=== PATIENT | female | born 1980 | race Asian ===

== ENCOUNTER 2018-11-09 11:06 | Emergency (ER) | payer OTHER ==
[2018-11-09 11:14] VITALS: BP 128/83; PULSE 70; BMI 26.4
--- NOTE | 2018-11-09 11:25 | PDOC ---
History of Present Illness - General Chief Complaint: Injury Stated Complaint: tailbone pain Time Seen by Provider: 11/09/18 11:25 History Source: Patient - History of Present Illness Initial Comments: 11/09/18 11:49 38-year-old female complaining of pain to the tailbone after sitting fast to a hardwood portion of a couch yesterday. Patient reports pain with sitting. Denies past medical history No known ALLERGIES Past History - Past Medical History Allergies/Adverse Reactions: Allergies Allergy/AdvReac Type Severity Reaction Status Date / Time No Known Drug Allergies Allergy Verified 04/07/17 12:03 Home Medications: Ambulatory Orders Ibuprofen [Motrin -] 600 mg PO QID PRN #28 tablet 06/12/15 Cephalexin [Keflex] 500 mg PO BID #12 capsule 04/07/17 Ibuprofen 600 mg PO QID PRN #20 tablet 11/09/18 Asthma: No Cancer: No Cardiac Disorders: No CVA: No COPD: No CHF: No DVT: No Dementia: No Diabetes: No GI Disorders: No Disorders: No HTN: No Hypercholesterolemia: No Liver Disease: No Seizures: No Thyroid Disease: No - Surgical History Abdominal Surgery: Yes (csection) Appendectomy: No Cardiac Surgery: No Cholecystectomy: No Lung Surgery: No Neurologic Surgery: No Orthopedic Surgery: No Other Surgical History: 11/09/18 11:51 tubal ligation - Reproductive History Is Patient Now?: No - Immunization History Immunization Up to Date: No - Psycho Social/Smoking Cessation Hx Smoking Status: No Smoking History: Never smoked Have you smoked in the past 12 months: No Number of Cigarettes Smoked Daily: 0 Information on smoking cessation initiated: No Hx Alcohol Use: No Drug/Substance Use Hx: No Substance Use Type: None Hx Substance Use Treatment: No Review of Systems - Review of Systems Able to Perform ROS?: Yes Is the patient limited Uzbek proficient: No Constitutional: No: Symptoms Reported, See HPI, Chills, Diaphoresis, Fever, Loss of Appetite, Malaise, Night Sweats, Weakness, Weight Stable, Unintentional Wgt. Loss, Unexplained wgt Loss, Other Respiratory: No: Symptoms reported, See HPI, Cough, Orthopnea, Shortness of Breath, SOB with Exertion, SOB at Rest, Stridor, Wheezing, Productive cough, Hemoptysis, Other Musculoskeletal: Yes: Other (tail bone pain) *Physical Exam - Vital Signs Last Vital Signs Temp Pulse Resp BP Pulse Ox 70 18 128/83 100 11/09/18 11:12 11/09/18 11:12 11/09/18 11:12 11/09/18 11:12 - Physical Exam General Appearance: Yes: Appropriately Dressed Musculoskeletal: positive: Other (coccyx area tenderness) Extremity: positive: Normal Capillary Refill, Normal Inspection, Normal Range of Motion Integumentary: positive: Normal Color, Dry, Warm Neurologic: positive: Fully Oriented, Alert, Normal Mood/Affect Medical Decision Making - Medical Decision Making 11/09/18 11:51 A: coccyxdenia P: xray Nsaids 11/09/18 11:56 Discharge - Discharge Information Problems reviewed: Yes Clinical Impression/Diagnosis: Coccygeal pain Condition: Stable - Additional Discharge Information Prescriptions: Ibuprofen 600 mg PO QID PRN #20 tablet PRN Reason: Back Pain - Follow up/Referral Referrals: Eulogio Erickson MD [Staff Physician] - - Patient Discharge Instructions Patient Printed Discharge Instructions: Coccydynia Additional Instructions: take ibuprofen as prescribed for pain. follow-up with an orthopedic doctor as soon as possible Return to the ER if symptoms are worsening. - Post Discharge Activity Work/Back to School Note: Back to Work
[2018-11-09] MEDS ORDERED: KETOROLAC TROMETHAMINE 30 MG/1 ML VIAL IM ONE (11:51)
[2018-11-09] MEDS ORDERED: KETOROLAC TROMETHAMINE 30 MG/1 ML VIAL ONE (11:59)
== END 2018-11-09 12:31 | disposition home or self-care (01) ==
LOC: JERFT 11:06
PROC: 3E0233Z Introduction of Anti-inflammatory into Muscle, Percutaneous Approach (ICD-10-PCS; principal; 2018-11-09)
DX: M53.3 Sacrococcygeal disorders, not elsewhere classified (principal)
CPT/HCPCS: 72100-TC-FY; 96372; 99282-25

== ENCOUNTER 2021-12-21 15:35 | Emergency (ER) | payer OTHER ==
[2021-12-21 16:01] VITALS: TEMP 98.6; BMI 25.0
[2021-12-21] MEDS ORDERED: SODIUM CHLORIDE 1,000 ML IV STA (16:22)
[2021-12-21] MEDS ORDERED: morphine CARPU-JECT 2 MG/1 ML DISP.SYRIN IVPUSH ONE (16:22)
[2021-12-21 16:32] LABS: HCG,QUALITATIVE URINE Negative
[2021-12-21] MEDS ORDERED: morphine SULFATE 4 MG/ML VIAL ONE (16:52)
[2021-12-21 17:08] LABS: EPITHELIAL CELLS FEW /hpf
[2021-12-21 17:28] LABS: INR 1.09 (0.83-1.09); PROTHROMBIN TIME (PATIENT) 12.6 SEC (9.7-13.0)
[2021-12-21 17:29] LABS: HEMATOCRIT 36.6 % (32.4-45.2); HEMOGLOBIN 11.8 G/dL (10.7-15.3); MCH 23.4 pg (25.7-33.7); MCHC 32.2 g/dl (32.0-36.0); MEAN CELL VOLUME 72.8 fl (80-96); MEAN PLT VOLUME 8.5 fl (7.5-11.1); PLATELET COUNT 410.2 10^3/uL (134-434); RBC 5.03 10^6/uL (3.60-5.2); RDW 17.6 % (11.6-15.6); WHITE BLOOD COUNT 9.2 10^3/uL (4.0-10.8)
[2021-12-21 17:36] LABS: ALBUMIN 4.4 g/dl (3.4-5.0); BILIRUBIN,TOTAL 0.4 mg/dl (0.2-1); CALCIUM 10.2 mg/dl (8.5-10); CREATININE 0.6 mg/dl (0.55-1.3); TOT PROT 7.5 g/dl (6.4-8.2)
[2021-12-21 17:47] LABS: PLATELET ESTIMATE SLT INCREASE
[2021-12-21] MEDS ORDERED: CEFTRIAXONE 1,000 MG in DEXTROSE 5%-WATER - 50 ML IVPB ONE (19:00)
[2021-12-21] MEDS ORDERED: cefTRIAXone SODIUM 1 GM VIAL ONE (19:12)
[2021-12-21 20:09] VITALS: BP 141/86; PULSE 71; RESP 16
[2021-12-21] MEDS ORDERED: NITROFURANTOIN MACROCRYSTAL 50 MG CAPSULE (FP) PO SCH (21:45)
[2021-12-21] MEDS ORDERED: NITROFURANTOIN MACROCRYSTAL 50 MG CAPSULE (FP) ONE (22:21)
[2021-12-21] MEDS ORDERED: guaiFENesin/CODEINE 10 ML UNIT-DOSE CUPS PO STA (22:28)
== END 2021-12-21 22:30 | disposition home or self-care (01) ==
LOC: FER 15:35
PROC: 3E033GC Introduction of Other Therapeutic Substance into Peripheral Vein, Percutaneous Approach (ICD-10-PCS; principal; 2021-12-21)
DX: N39.0 Urinary tract infection, site not specified (principal); R10.84 Generalized abdominal pain
CPT/HCPCS: 0241U-QW; 36415; 74177-TC; 80053; 81003; 81015; 83690; 84703; 85027; 85610; 86850; 86900; 86901; 87086; 87186; 99285-25; Q9967

== ENCOUNTER 2021-12-23 09:00 | Emergency (ER) | payer OTHER ==
[2021-12-23 09:23] VITALS: BP 146/89; PULSE 77; RESP 16; BMI 25.0
[2021-12-23] MEDS ORDERED: SODIUM CHLORIDE 0.9% 500 ML INFUS.BAG IV ONE (09:26)
[2021-12-23] MEDS ORDERED: ACETAMINOPHEN 1000 MG/100 ML BAG IVPB ONE (09:26)
[2021-12-23] MEDS ORDERED: ACETAMINOPHEN INJECTION 100 ML IVPB ONE (09:28)
[2021-12-23 10:05] LABS: HEMATOCRIT 37.9 % (32.4-45.2); HEMOGLOBIN 12.3 G/dL (10.7-15.3); MCH 23.7 pg (25.7-33.7); MCHC 32.6 g/dl (32.0-36.0); MEAN CELL VOLUME 72.7 fl (80-96); MEAN PLT VOLUME 8.2 fl (7.5-11.1); PLATELET COUNT 405.4 10^3/uL (134-434); RBC 5.21 10^6/uL (3.60-5.2); RDW 16.9 % (11.6-15.6)
[2021-12-23 10:10] LABS: ALBUMIN 4.3 g/dl (3.4-5.0); BILIRUBIN,TOTAL 0.6 mg/dl (0.2-1); CALCIUM 9.8 mg/dl (8.5-10); CREATININE 0.7 mg/dl (0.55-1.3); TOT PROT 7.7 g/dl (6.4-8.2)
[2021-12-23 10:18] LABS: PLATELET ESTIMATE ADEQUATE
[2021-12-23 10:45] VITALS: TEMP 98
[2021-12-23 13:18] LABS: HCG,QUALITATIVE URINE Negative
[2021-12-23] MEDS ORDERED: diphenhydrAMINE HCL 50 MG CAPSULE PO ONE (14:24)
[2021-12-23] MEDS ORDERED: diphenhydrAMINE HCL 50 MG CAPSULE ONE (14:26)
== END 2021-12-23 14:33 | disposition home or self-care (01) ==
LOC: FER 09:00
PROC: 3E033GC Introduction of Other Therapeutic Substance into Peripheral Vein, Percutaneous Approach (ICD-10-PCS; principal; 2021-12-23)
DX: R10.84 Generalized abdominal pain (principal)
CPT/HCPCS: 36415; 76830-TC; 76856-TC; 80053; 81003; 84703; 85027; 99284-25

== ENCOUNTER 2021-12-29 12:18 | Emergency (ER) | payer OTHER ==
[2021-12-29 12:27] VITALS: BP 131/76; PULSE 84; RESP 18; TEMP 97.5; BMI 24.0
[2021-12-29 15:36] LABS: BASO % 0.3 % (0-2.0); EOS % 1.2 % (0-4.5); HEMATOCRIT 35.7 % (32.4-45.2); HEMOGLOBIN 11.4 GM/dL (10.7-15.3); LYMPH % 27.4 % (8-40); MCHC 31.8 g/dl (32.0-36.0); MEAN CELL VOLUME 72.4 fl (80-96); MEAN PLT VOLUME 8.1 fl (7.5-11.1); NEUT % 60.1 % (42.8-82.8); PLATELET COUNT 398 10^3/uL (134-434); RBC 4.93 M/mm3 (3.60-5.2); RDW 16.2 % (11.6-15.6); WHITE BLOOD COUNT 8.4 K/mm3 (4.0-10.0)
[2021-12-29] MEDS ORDERED: ALBUTEROL SO4 HFA INHALER IH ONE (15:51)
[2021-12-29 15:54] LABS: CHLORIDE 109 mmol/L (98-107); SODIUM 141 mmol/L (136-145)
[2021-12-29 15:55] LABS: CALCIUM 9.5 mg/dL (8.5-10.1)
[2021-12-29 15:56] LABS: ANION GAP 9 MMOL/L (8-16); BLOOD UREA NITROGEN 9.4 mg/dL (7-18); CO2 23 mmol/L (21-32); GLUCOSE,RANDOM 71 mg/dL (74-106)
[2021-12-29 15:59] LABS: CREATININE 0.6 mg/dL (0.55-1.3)
[2021-12-29] MEDS ORDERED: KETOROLAC TROMETHAMINE 30 MG/1 ML VIAL IVPUSH ONE (17:57)
[2021-12-29] MEDS ORDERED: ACETAMINOPHEN 1000 MG/100 ML BAG IVPB ONE (17:57)
[2021-12-29] MEDS ORDERED: ACETAMINOPHEN INJECTION 100 ML IVPB ONE (18:06)
[2021-12-29] MEDS ORDERED: KETOROLAC TROMETHAMINE 30 MG/1 ML VIAL ONE (18:07)
== END 2021-12-29 18:44 | disposition home or self-care (01) ==
LOC: JER 12:18
PROC: 3E0333Z Introduction of Anti-inflammatory into Peripheral Vein, Percutaneous Approach (ICD-10-PCS; principal; 2021-12-29)
PROC: 3E0333Z Introduction of Anti-inflammatory into Peripheral Vein, Percutaneous Approach (ICD-10-PCS; 2021-12-29)
DX: R10.2 Pelvic and perineal pain (principal)
CPT/HCPCS: 36415; 74177-TC; 80048; 84702; 85025; 99285-25; Q9967

== ENCOUNTER 2022-02-10 04:09 | Day surgery (SDC) | payer OTHER ==
[2022-02-03 11:40] VITALS: BMI 25.0
[2022-02-10] MEDS ORDERED: PHENAZOPYRIDINE HCL 100 MG TABLET (FP) PO ONE ×2 (06:30→06:45)
[2022-02-10] MEDS ORDERED: CEFAZOLIN 2 GM in DEXTROSE 5%-WATER - 100 ML IVPB ONE (06:30)
[2022-02-10] MEDS ORDERED: ceFAZolin SODIUM 1 GM VIAL ONE ×3 (06:39→07:58)
[2022-02-10] MEDS ORDERED: GABAPENTIN 300 MG CAPSULE PO ONE ×2 (06:45→07:00)
[2022-02-10] MEDS ORDERED: ROCURONIUM BROMIDE 50 MG/5 ML SYRINGE ONE ×2 (06:53→08:28)
[2022-02-10] MEDS ORDERED: SUCCINYLCHOLINE CHLORIDE 200 MG/10 ML SYRINGE ONE (06:53)
[2022-02-10] MEDS ORDERED: PROPOFOL 20 ML ONE (06:53)
[2022-02-10] MEDS ORDERED: FENTANYL CITRATE/PF 50 MCG/ML VIAL ONE ×4 (06:53→10:55)
[2022-02-10] MEDS ORDERED: MIDAZOLAM HCL 2 MG/2 ML SINGLE DOSE VIAL ONE (06:53)
[2022-02-10] MEDS ORDERED: CLINDAMYCIN IVPB 300 MG in DEXTROSE 5%-WATER - 50 ML IVPB ONE (06:56)
[2022-02-10] MEDS ORDERED: TRANEXAMIC ACID 1000 MG/10 ML VIAL IVPUSH ONE (07:00)
[2022-02-10] MEDS ORDERED: ACETAMINOPHEN 1000 MG/100 ML BAG IVPB ONE (07:00)
[2022-02-10] MEDS ORDERED: BUPIVACAINE HCL/PF 0.5% (5MG/ML) 10 ML VIAL ONE (07:08)
[2022-02-10] MEDS ORDERED: DEXAMETHASONE SOD PHOSPHATE 10 MG/1 ML VIAL ONE (07:08)
[2022-02-10] MEDS ORDERED: KETOROLAC TROMETHAMINE 30 MG/1 ML VIAL ONE (07:58)
[2022-02-10] MEDS ORDERED: ONDANSETRON 4 MG/2 ML VIAL ONE (07:58)
[2022-02-10] MEDS ORDERED: DEXAMETHASONE SOD PHOSPHATE 4 MG/1 ML VIAL ONE (07:58)
[2022-02-10] MEDS ORDERED: ceFAZolin SODIUM 1 GM VIAL IVPB ONE (08:00)
[2022-02-10] MEDS ORDERED: NEOSTIGMINE METHYLSULFATE 0.5 MG/ML - 10 ML MDV ONE (08:37)
[2022-02-10] MEDS ORDERED: GLYCOPYRROLATE 0.2 MG/1 ML VIAL ONE ×2 (08:37)
[2022-02-10] MEDS ORDERED: HYDROmorphone HCl 2 MG/ML VIAL ONE ×2 (09:04→11:40)
[2022-02-10] MEDS ORDERED: ONDANSETRON 4 MG/2 ML VIAL IVPUSH PRN ×2 (09:53→09:57)
[2022-02-10] MEDS ORDERED: ACETAMINOPHEN 325 MG TABLET (FP) PO PRN (09:53)
[2022-02-10] MEDS ORDERED: oxyCODONE HCL 5 MG TABLET PO PRN ×3 (09:53→10:07)
[2022-02-10] MEDS ORDERED: DOCUSATE SODIUM 100 MG CAPSULE (FP) PO PRN (09:57)
[2022-02-10] MEDS ORDERED: BISACODYL 5 MG TABLET.DR (FP) PO PRN (09:57)
[2022-02-10] MEDS ORDERED: LACTATED RINGERS SOLUTION 1,000 ML IV SCH (10:00)
[2022-02-10] MEDS ORDERED: ACETAMINOPHEN 325 MG TABLET (FP) PO SCH (10:00)
[2022-02-10] MEDS: HYDROmorphone HCL CARPU-JECT 2 MG/1 ML DISP.SYRIN IVPB PRN ×2 (11:44→12:08)
[2022-02-10] MEDS ORDERED: HYDROmorphone HCl 2 MG/ML VIAL IVPB PRN (12:20)
[2022-02-10] MEDS ORDERED: IBUPROFEN 800 MG/8 ML IJ IVPB PRN ×2 (16:00)
[2022-02-10] MEDS ORDERED: CEFAZOLIN 1 GM/D5W 1 GM/50 ML BAG IVPB SCH (16:00)
[2022-02-10] MEDS: CEFAZOLIN 1 GM in DEXTROSE 5%-WATER - 50 ML IVPB SCH (16:37)
[2022-02-10] MEDS: ACETAMINOPHEN 500 MG TABLET (FP) PO SCH ×3 (16:38→20:48)
[2022-02-11] MEDS: SIMETHICONE 80 MG TAB.CHEW (FP) PO PRN ×2 (00:10→14:10)
[2022-02-11] MEDS: oxyCODONE HCL 5 MG TABLET PO PRN ×2 (00:10→13:14)
[2022-02-11] MEDS: CEFAZOLIN 1 GM in DEXTROSE 5%-WATER - 50 ML IVPB SCH (00:11)
[2022-02-11] MEDS: ACETAMINOPHEN 500 MG TABLET (FP) PO SCH ×4 (02:21→14:05)
[2022-02-11 09:15] LABS: HEMATOCRIT 29.6 % (32.4-45.2); HEMOGLOBIN 9.1 GM/dL (10.7-15.3); MCH 22.1 pg (25.7-33.7); MCHC 30.6 g/dl (32.0-36.0); MEAN CELL VOLUME 72.2 fl (80-96); MEAN PLT VOLUME 8.3 fl (7.5-11.1); PLATELET COUNT 328 10^3/uL (134-434); RDW 16.9 % (11.6-15.6); WHITE BLOOD COUNT 14.6 K/mm3 (4.0-10.0)
[2022-02-11 09:46] LABS: BLOOD UREA NITROGEN 7.1 mg/dL (7-18)
[2022-02-11 09:48] LABS: CREATININE 0.9 mg/dL (0.55-1.3)
[2022-02-11] MEDS ORDERED: ENOXAPARIN NA (PORCINE) 40 MG/0.4 ML DISP.SYRIN SQ SCH (10:00)
[2022-02-11 10:34] VITALS: BP 127/81; PULSE 92; RESP 16; TEMP 98.9
== END 2022-02-11 16:35 | disposition home or self-care (01) ==
LOC: JASUSAT 04:09 → J3W 13:12 → JASUSAT 02-11 16:35
PROVIDERS: ATTEND Obstetrics & Gynecology
PROC: 0UB04ZZ Excision of Right Ovary, Percutaneous Endoscopic Approach (ICD-10-PCS; 2022-02-10)
PROC: 0UT94ZL Resection of Uterus, Supracervical, Percutaneous Endoscopic Approach (ICD-10-PCS; principal; 2022-02-10 07:30)
PROC: 0UT74ZZ Resection of Bilateral Fallopian Tubes, Percutaneous Endoscopic Approach (ICD-10-PCS; 2022-02-10 07:30)
DX: N80.03 Adenomyosis of the uterus (principal); D25.9 Leiomyoma of uterus, unspecified; N72 Inflammatory disease of cervix uteri; N83.11 Corpus luteum cyst of right ovary
CPT/HCPCS: 36415; 80048; 81025; 85027; 86850; 86900; 86901; 88307-TC; 88309-TC; 94010; 94760; J1100

== ENCOUNTER 2022-09-21 23:39 | Emergency (ER) | payer OTHER ==
[2022-09-21 23:43] VITALS: BP 146/89; TEMP 98.1; BMI 25.4
[2022-09-21] MEDS ORDERED: DEXAMETHASONE SOD PHOSPHATE 10 MG/1 ML VIAL IM ONE (23:54)
[2022-09-21] MEDS ORDERED: FAMOTIDINE 20 MG TABLET ONE (23:58)
[2022-09-21] MEDS ORDERED: DEXAMETHASONE SOD PHOSPHATE 10 MG/1 ML VIAL ONE (23:58)
[2022-09-22] MEDS ORDERED: ONDANSETRON *ODT* 4 MG TABLET ONE (00:02)
[2022-09-22] MEDS ORDERED: FAMOTIDINE 20 MG TABLET PO ONE (00:14)
[2022-09-22] MEDS ORDERED: ONDANSETRON *ODT* 4 MG TABLET SL ONE (00:14)
[2022-09-22 01:33] VITALS: PULSE 76; RESP 18
== END 2022-09-22 01:33 | disposition home or self-care (01) ==
LOC: JER 23:39
PROC: 3E023GC Introduction of Other Therapeutic Substance into Muscle, Percutaneous Approach (ICD-10-PCS; principal; 2022-09-21)
PROC: 3E023GC Introduction of Other Therapeutic Substance into Muscle, Percutaneous Approach (ICD-10-PCS; 2022-09-21)
DX: L29.9 Pruritus, unspecified (principal); L50.0 Allergic urticaria; T36.95XA Adverse effect of unspecified systemic antibiotic, initial encounter
CPT/HCPCS: 99284-25; J1100; Q0162